=== PATIENT | male | born 1985 | race Caucasian/White ===

== ENCOUNTER 2018-01-11 09:49 | Emergency (ER) | payer OTHER ==
[~2018-01-11] VITALS: Ht 177.8 cm; Wt 90.7 kg
[2018-01-11 10:31] LABS: ABSOLUTE NEUTROPHILS 3.1 thou/uL (1.4-8.2); BASOPHILS 0.5 % (0.0-2.0); EOSINOPHILS 1.7 % (0.0-3.0); HEMATOCRIT 46.1 % (42.0-52.0); LYMPHOCYTES 27.9 % (24.0-44.0); MCH 32.2 pg (26.0-34.0); MCHC 34.8 g/dL (28.0-37.0); MCV 92.6 fL (80.0-100.0); MONOCYTES 6.9 % (1.0-8.0); PLATELET COUNT 135 thou/uL (150-400); RBC 4.98 mil/uL (4.50-6.00); RDW 12.8 % (10.5-14.5); URINE BILIRUBIN NEGATIVE (Negative); URINE BLOOD NEGATIVE (Negative); URINE CLARITY CLEAR; URINE COLOR YELLOW; URINE GLUCOSE-RANDOM* TRACE (Negative); URINE KETONES NEGATIVE (Negative); URINE LEUKOCYTES-REFLEX NEGATIVE (Negative); URINE NITRITE-REFLEX NEGATIVE (Negative); URINE PROTEIN (DIPSTICK) NEGATIVE (Negative); URINE SPECIFIC GRAVITY 1.025 (1.005-1.035); URINE UROBILINOGEN 0.2 E.U./dl (0.2-1.0)
[2018-01-11 10:35] LABS: CALCIUM 9.2 mg/dL (8.5-10.1); POTASSIUM 3.8 mmol/L (3.5-5.1)
[2018-01-11 10:41] LABS: ALBUMIN 3.9 g/dL (3.4-5.0); TOTAL BILIRUBIN 0.6 mg/dL (<0.1-1.0); TOTAL PROTEIN 7.9 g/dL (6.4-8.2)
[2018-01-11] MEDS ORDERED: NAPROSYN500 MG PO (11:32)
[2018-01-11 11:37] VITALS: BP 122/84
== END 2018-01-11 11:43 | disposition home or self-care (01) ==
LOC: ER 09:49
PROVIDERS: Emergency Medicine
DX: R10.31 Right lower quadrant pain (principal); M79.602 Pain in left arm; F17.210 Nicotine dependence, cigarettes, uncomplicated; I10 Essential (primary) hypertension

== ENCOUNTER 2019-04-14 11:25 | Emergency (ER) | payer BC, OTHER ==
[~2019-04-14] VITALS: Ht 175.3 cm; Wt 90.7 kg
[~2019-04-14 11:25] MED LIST: NAPROSYN500 MG PO
[2019-04-14 12:12] LABS: ABSOLUTE NEUTROPHILS 5.7 thou/uL (1.4-8.2); BASOPHILS 0.7 % (0.0-2.0); EOSINOPHILS 0.5 % (0.0-3.0); HEMATOCRIT 47.7 % (42.0-52.0); HEMOGLOBIN 16.3 gm/dL (14.0-18.0); LYMPHOCYTES 23.2 % (24.0-44.0); MCH 31.8 pg (26.0-34.0); MCHC 34.1 g/dL (28.0-37.0); MONOCYTES 5.3 % (1.0-8.0); PLATELET COUNT 184 thou/uL (150-400); POLYS 70.3 % (36.0-66.0); RBC 5.13 mil/uL (4.50-6.00); RDW 12.6 % (10.5-14.5); WBC 8.2 thou/uL (4.0-11.0)
[2019-04-14] MEDS ORDERED: HYDROXYZINE PAM25 M1 PO (12:14)
[2019-04-14] MEDS ORDERED: LISINOPRIL2.5 MG PO (12:15)
[2019-04-14] MEDS ORDERED: NORVASC 2.5 MG2.5 M1 PO (12:15)
[2019-04-14 12:19] LABS: ANION GAP 11 mmol/L (7-16); BUN 15 mg/dL (7-18); CALCIUM 9.5 mg/dL (8.5-10.1); CHLORIDE 100 mmol/L (98-107); CO2 27 mmol/L (21-32); GLUCOSE 149 mg/dL (74-106); POTASSIUM 3.5 mmol/L (3.5-5.1); SODIUM 138 mmol/L (136-145)
[2019-04-14 12:30] LABS: ALBUMIN 4.9 g/dL (3.4-5.0); LIPASE 163 U/L (73-393); SGOT 37 U/L (15-37); SGPT 59 U/L (30-65); TOTAL BILIRUBIN 0.6 mg/dL (<0.1-1.0); TOTAL PROTEIN 9.1 g/dL (6.4-8.2)
[2019-04-14 12:31] LABS: TROPONIN-I <0.06 ng/mL (<0.06)
[2019-04-14 13:44] VITALS: BP 126/84
--- NOTE | 2019-04-15 13:39 | EKG ---
[facility] [place] [address] ELECTROCARDIOGRAM REPORT Name: STEPHY JACKSON III Room #: DEP [facility]#: [id number] Admission: 04/14/19 Attend Phys: Discharge: 04/14/19 Date of : 81 Report #: [id number] THIS REPORT FOR: cc: FAM - Family physician unknown FAM - Family physician unknown Lowell Thrasher MD ~ THIS REPORT FOR: //name// [facility] ED Test Date: 2019-04-14 Test Time: 11:30:40 Pat Name: STEPHY JACKSON Department: Room: Gender: [employer]: JULIA : 1985 Requested By: Jude Fragoso Order Number: [id number] MD: Lowell Thrasher Measurements Intervals [place] Rate: 147 P: 0 GA: 115 QRS: 86 QRSD: 104 T: -31 QT: 296 QTc: 463 Interpretive Statements Sinus tachycardia Multiple ventricular premature complexes Baseline wander in lead(s) V1,V2 No previous ECG available for comparison Electronically Signed On 04-15-2019 13:38:45 [employer] by Lowell Thrasher [email or web address] <ELECTRONICALLY SIGNED> By: Lowell Thrasher MD 04/15/19 1338 1130 1130 Lowell Thrasher MD /EPI
== END 2019-04-14 14:43 | disposition home or self-care (01) ==
LOC: ER 11:25
PROVIDERS: Emergency Medicine
DX: F41.9 Anxiety disorder, unspecified (principal); R42 Dizziness and giddiness; I10 Essential (primary) hypertension; F17.210 Nicotine dependence, cigarettes, uncomplicated